=== PATIENT | female | born 1995 | race Caucasian/White ===

== ENCOUNTER 2016-11-14 00:21 | Emergency (ER) | payer OTHER ==
[2016-11-14 00:43] VITALS: BP 123/61
== END 2016-11-14 00:43 | disposition other institution (70) ==
LOC: ED 00:21
DX: Z02.89 Encounter for other administrative examinations (principal); S60.811A Abrasion of right wrist, initial encounter; V43.52XA Car driver injured in collision with other type car in traffic accident, initial encounter; Y93.89 Activity, other specified; Y99.8 Other external cause status; Y92.89 Other specified places as the place of occurrence of the external cause

== ENCOUNTER 2019-08-04 18:06 | Emergency (ER) | payer BC ==
[~2019-08-04] VITALS: Ht 160 cm; Wt 54.9 kg
[2019-08-04 19:25] VITALS: Ht 160 cm; Wt 54.9 kg
[2019-08-04 20:33] LABS: BASOPHIL % 0.4 % (0-2); PLATELET COUNT 286 x10^3mcL (130-400); RED CELL DISTRIBUTION WIDTH 14.3 % (11.5-14.5)
[2019-08-04 20:48] LABS: CALCIUM 9.1 mg/dL (8.5-10.1); CHLORIDE SERUM 104 mmol/L (98-107); CREATININE SERUM 0.6 mg/dL (0.6-1.0); GFR1 > 60 mL/min; GLUCOSE SERUM 94 mg/dL (74-106); POTASSIUM SERUM 3.7 mmol/L (3.5-5.1); SODIUM SERUM 141 mmol/L (136-145)
[2019-08-04 20:53] LABS: ALBUMIN 3.8 g/dL (3.4-5.0); ALKALINE PHOSPHATASE 54 U/L (46-116); ALT/SGPT 24 U/L (14-59); AST/SGOT 24 U/L (15-37); BILIRUBIN TOTAL 0.4 mg/dL (0.20-1.00); TOTAL PROTEIN, SERUM 7.7 g/dL (6.4-8.2)
[2019-08-04 21:04] LABS: C REACTIVE PROTEIN < 0.2 mg/dL (<=0.9)
[2019-08-04 22:30] VITALS: BP 102/70
== END 2019-08-04 22:30 | disposition home or self-care (01) ==
LOC: ED 18:06
PROVIDERS: Specialist
DX: G89.29 Other chronic pain (principal); R14.0 Abdominal distension (gaseous); R11.2 Nausea with vomiting, unspecified; R10.9 Unspecified abdominal pain; F41.9 Anxiety disorder, unspecified; F32.9 Major depressive disorder, single episode, unspecified
CPT/HCPCS: 36415; J0780; J1885